=== PATIENT | male | born 1990 | race Caucasian/White ===

== ENCOUNTER 2018-04-06 12:17 | Emergency (ER) | payer SELFPAY ==
[2018-04-06 13:39] LABS: A TYPE INFLUENZA AG NEGATIVE (NEGATIVE); B INFLUENZA AG NEGATIVE (NEGATIVE)
--- NOTE | 2018-04-06 13:57 | ER Document Report ---
HPI - HPI Patient complains to provider of: Patient presents with a sore throat the past week. Denies fever. Time Seen by Provider: 04/06/18 12:56 Onset: Just prior to arrival Onset/Duration: Gradual Quality of pain: No pain Severity: Mild Pain Level: Denies Associated Symptoms: denies: Productive cough, Diarrhea, Drooling, Earache, Hoarseness, Shortness of breath Exacerbated by: Denies Relieved by: Denies Similar symptoms previously: No Recently seen / treated by doctor: No - ROS ROS below otherwise negative: No - CONSTITUTIONAL Constitutional: DENIES: Fever, Chills - EENT EENT: REPORTS: Sore Throat. DENIES: Congestion, Eye problems - NEURO Neurology: DENIES: Headache, Weakness, Vision blurred - CARDIOVASCULAR Cardiovascular: DENIES: Chest pain - RESPIRATORY Respiratory: DENIES: Trouble Breathing - GASTROINTESTINAL Gastrointestinal: DENIES: Abdominal Pain - DERM Skin Color: Normal Skin Problems: None Past Medical History - General Information source: Patient - Social History Smoking Status: Never Smoker Cigarette use (# per day): No Chew tobacco use (# tins/day): No Smoking Education Provided: No Frequency of alcohol use: None Drug Abuse: None Lives with: Family Family History: None Patient has suicidal ideation: No Patient has homicidal ideation: No - Medical History Medical History: Negative Surgical Hx: Negative Vertical Provider Document - CONSTITUTIONAL Agree With Documented VS: Yes Exam Limitations: No Limitations General Appearance: WD/WN - INFECTION CONTROL TRAVEL OUTSIDE OF THE [place] IN LAST 30 DAYS: No - HEENT HEENT: Atraumatic, Pharyngeal Erythema. negative: Dental Injury, Pharyngeal Exudate - NECK Neck: Supple - RESPIRATORY Respiratory: Breath Sounds Normal - CARDIOVASCULAR Cardiovascular: Regular Rate - GI/ABDOMEN Gastrointestinal: Abdomen Soft - NEURO Level of Consciousness: Awake, Alert, Appropriate Course - Vital Signs Vital signs: Temp Pulse Resp BP Pulse Ox 98.1 F 92 16 141/82 H 98 04/06/18 12:21 04/06/18 12:21 04/06/18 12:21 04/06/18 12:21 04/06/18 12:21 Discharge - Discharge Clinical Impression: URI Condition: Stable Disposition: HOME, SELF-CARE Instructions: Upper Respiratory Illness ([facility]) Additional Instructions: Notes: The rapid strep test was negative. The flu study tests were negative as well. I recommend rest, drink plenty of fluids, see the information sheet on upper respiratory illness. Return to the emergency room for worsening sore throat, fever (temperature greater than 100.5), shortness of breath or any concerns or getting worse. Forms: Return to Work
[2018-04-06 13:58] VITALS: BP 136/86
== END 2018-04-06 13:56 | disposition home or self-care (01) ==
LOC: ER 12:17
DX: J06.9 Acute upper respiratory infection, unspecified (principal); J02.9 Acute pharyngitis, unspecified
CPT/HCPCS: 87070; 87804; 87880; 99283

== ENCOUNTER 2018-08-30 08:51 | Emergency (ER) | payer SELFPAY ==
--- NOTE | 2018-08-30 10:04 | ER Document Report ---
ED Medical Screen (RME) - General Chief Complaint: Abdominal Pain Stated Complaint: STOMACH PAIN Time Seen by Provider: 08/30/18 09:09 Mode of Arrival: Ambulatory Information source: Patient Notes: 28-year-old male presents to ED for complaint of lower abdominal pain nausea and diarrhea. He states he has not had any vomiting. He is alert oriented respirations regular and unlabored speaking in full sentences. He states he is a former walker and drinker has not drink since he was 21. He states he does smoke marijuana. He lives with his significant other works at a [employer]. States he has not had any vomiting. He is alert oriented respirations regular and unlabored speaking in full sentences. I have greeted and performed a rapid initial assessment of this patient. A comp rehensive ED assessment and evaluation of the patient, analysis of test results and completion of medical decision making process will be conducted by an additional ED providers. Dictation of this chart was performed using voice recognition software; therefore, there may be some unintended grammatical errors. TRAVEL OUTSIDE OF THE [place] IN LAST 30 DAYS: No - Related Data Allergies/Adverse Reactions: citalopram [From Celexa] Allergy (Verified 08/30/18 08:52) Past Medical History - Social History Frequency of alcohol use: None Renal/ Medical History: Denies: Hx Peritoneal Dialysis Physical Exam - Vital signs Vitals: Temp Pulse Resp BP Pulse Ox 97.8 F 60 20 124/84 97 08/30/18 08:56 08/30/18 08:56 08/30/18 08:56 08/30/18 08:56 08/30/18 08:56 Course - Vital Signs Vital signs: Temp Pulse Resp BP Pulse Ox 97.8 F 60 20 124/84 97 08/30/18 08:56 08/30/18 08:56 08/30/18 08:56 08/30/18 08:56 08/30/18 08:56
[2018-08-30 10:44] LABS: ABSOLUTE EOSINOPHILS # (AUTO) 0.1 10^3/uL (0.0-0.6); ABSOLUTE MONOCYTES (AUTO) 0.6 10^3/uL (0.1-1.4); ABSOLUTE NEUT (AUTO) 3.3 10^3/uL (1.7-8.2); BASOPHILS % (AUTO) 0.7 % (0-2); HEMATOCRIT 43.1 % (37.9-51.0); HEMOGLOBIN 15.4 g/dL (13.5-17.0); LYMPHOCYTES % (AUTO) 32.5 % (13-45); MEAN CORPUSCULAR HEMOGLOBIN 29.7 pg (27.0-33.4); MEAN CORPUSCULAR HGB CONC 35.7 g/dL (32.0-36.0); MEAN CORPUSCULAR VOLUME 83 fl (80-97); MONOCYTES % (AUTO) 9.6 % (3-13); PLATELET COUNT 216 10^3/uL (150-450); RED BLOOD COUNT 5.19 10^6/uL (4.35-5.55); RED CELL DISTRIBUTION WIDTH 13.1 % (11.5-14.0); SEGMENTED NEUTROPHILS % (AUTO) 55.2 % (42-78); TOTAL CELLS COUNTED % (AUTO) 100 %
[2018-08-30 10:59] LABS: APPEARANCE,URINE CLEAR; BILIRUBIN,URINE NEGATIVE (NEGATIVE); COLOR,URINE YELLOW; GLUCOSE, URINE NEGATIVE (NEGATIVE); KETONES,URINE NEGATIVE (NEGATIVE); LEUKOCYTE ESTERASE,URINE NEGATIVE (NEGATIVE); NITRITE,URINE NEGATIVE (NEGATIVE); PROTEIN,URINE NEGATIVE (NEGATIVE); URINE SPECIFIC GRAVITY 1.021; UROBILINOGEN,URINE NEGATIVE mg/dL (<2.0)
[2018-08-30 11:04] LABS: ALANINE AMINOTRANSFERASE 35 U/L (21-72); ALBUMIN 4.5 g/dL (3.5-5.0); ALKALINE PHOSPHATASE 57 U/L (38-126); ANION GAP 8 (5-19); ASPARTATE AMINO TRANSFERASE 34 U/L (17-59); BILIRUBIN,DIRECT 0.2 mg/dL (0.0-0.4); BILIRUBIN,TOTAL 0.6 mg/dL (0.2-1.3); BLOOD UREA NITROGEN 14 mg/dL (7-20); CALCIUM 9.5 mg/dL (8.4-10.2); CARBON DIOXIDE 27 mmol/L (22-30); CHLORIDE 104 mmol/L (98-107); GLUCOSE 99 mg/dL (75-110); POTASSIUM 4.5 mmol/L (3.6-5.0); TOTAL PROTEIN 6.9 g/dL (6.3-8.2)
[2018-08-30 11:19] LABS: URINE AMPHETAMINES SCREEN NEGATIVE; URINE BARBITURATES SCREEN NEGATIVE; URINE BENZODIAZEPINES SCREEN NEGATIVE; URINE COCAINE SCREEN NEGATIVE; URINE MARIJUANA (THC) SCREEN UNCONFIRMED POSITIVE; URINE METHADONE SCREEN NEGATIVE; URINE PHENCYCLIDINE SCREEN NEGATIVE
--- NOTE | 2018-08-30 12:16 | ER Document Report ---
HPI - HPI Patient complains to provider of: abdominal pain, nausea, diarrhea Time Seen by Provider: 08/30/18 09:09 Onset: Yesterday Onset/Duration: Intermittent Quality of pain: Cramping Severity: Mild Pain Level: 2 Context: 28 yr old male pt with the listed pmh, here requesting a work note and also for intermittent crampy lower abdominal pain and a few episodes of loose nonbloody diarrhea x 2 days. thinks he may have eaten some bad chicken. girlfriend sick with same. some nausea. no vomiting. no trauma or injury. no hx of diabetes or asthma. no uti sx. no testicular pain/swelling, penile dc/rash/lesions, or concerns for stds. denies swelling or hx of hernias. no abd surgeries unless otherwise noted. no recent abx or steroids. hasn't taken anything for sx. no hx of gerd, gb dz, panceratitis, gi bleed, ulcers, ibs, or crohns. no hx of this before. no uri sx. no rash. no excessive nsaid use or etoh. no recent illness. pain not worse with eating. denies changes in color of stool. no other associated sx. hasn't sought care until now. no recent abx or travel. no other changes in meds or diet. tolerating po. Associated Symptoms: Diarrhea, Nausea Exacerbated by: Denies Relieved by: Denies Similar symptoms previously: No Recently seen / treated by doctor: No - ROS Systems Reviewed and Negative: Yes All other systems reviewed and negative - to include 10, unless mentioned in the hpi - DERM Skin Color: Normal Past Medical History - General Information source: Patient - Social History Smoking Status: Former Smoker Frequency of alcohol use: None Drug Abuse: Marijuana - denies hx of cannabis hyperemesis Family History: None Patient has suicidal ideation: No Patient has homicidal ideation: No Renal/ Medical History: Denies: Hx Peritoneal Dialysis - Immunizations Immunizations up to date: Yes Vertical Provider Document - CONSTITUTIONAL Notes: >>>> PHYSICAL_EXAM: GENERAL_APPEARANCE: well_nourished, alert, cooperative, no_acute_distress, no obvious_discomfort. Pleasant, young male, smiling, speaking in full sentences, easily sitting up, in no sign of pain or resp distress, nontoxic VITALS: reviewed, see vital signs table. HEAD: normocephalic. atraumatic. no subramanian signs. no raccoon eyes. EYES: PERRL, EOMI, (-)scleral icterus. NOSE: no_nasal_discharge. MOUTH: (-)decreased moisture. THROAT: no_tonsilar_inflammation/hypertrophy/exudate. no lymphadenopathy NECK: supple, no_neck_tenderness, full rom. full strength. no meningeal signs. BACK: no_back_tenderness. CHEST_WALL: no_chest_tenderness. LUNGS: no_wheezing, (-)accessory muscle use, good air exchange bilateral. HEART: normal_rate, normal_rhythm,, ABDOMEN: normal_BS, soft, abdomen-diffuse non-tender, (-)guarding, (-)rebound, no distension or peritoneal signs. neg murphys. neg mcburneys. neg heel strike. neg obturator. neg psoas. neg rovsign. no cva tenderness GENITALS: deferred by pt RECTAL: deferred EXTREMITIES: , strength 5/5 in all_extremities, good pulses in all_extremities, no_edema, no_swelling\tenderness. full rom. normal gait. brisk cap refill. 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 SKIN: warm, dry, good_color, n _rash. no grossly visible overlying skin changes to suggest trauma unless otherwise noted. NEURO: motor_intact, sensory_intact. cranial nerves 2-12 intact, cerebellar fxn intact MENTAL_STATUS: normal_affect, speech_clear, oriented_X_3, responds_a ppropriately to questions. - INFECTION CONTROL TRAVEL OUTSIDE OF THE [place] IN LAST 30 DAYS: No Course - Re-evaluation Re-evalutation: pt here for some intermittent crampy abd pain and a few episodes of diarrhea x 2days. concern for possible ingestion of bad chicken. also requesting a work not e. states some nausea. no vomiting. no fevers. girlfriend sick with similar. labs unremarkable other than marijuana pos on uds. denies hx of cannabis hyperemesis. denies any abd pain currently or nausea. just requests something to help with the intermittent diffuse stomach cramps and a work note. stool studies pending. advised will call with any results that require change in plan of care once they return. advised bland diet. drink plenty of fluids. serial abd exams remain benign. he is tolerating po. appears nontoxic and clinically hydrated. will dc with a few bentyl. abd pain return precautions given. advised to f/u with pcp in 1-2 days. return for any worsening symptoms. vss. well appearing. satting well on ra. neurononfocal. pt understands and agrees to plan. On reexam, pt improved remained stable. nontoxic. well appearing. pain controlled. tolerating po. requesting to go home. serial abd exams remain benign Documentation achieved through voice recording which my lead to some occasional accidental typographical errors. Extensive efforts have been made to proof read documentation to make sure these are the least as possible. Category Date Time Status CBC WITH DIFF [HEME] Stat Lab 08/30/18 10:20 Completed COMPREHENSIVE METABOLIC PANEL [CHEM] Stat Lab 08/30/18 10:20 Completed LIPASE [CHEM] Stat Lab 08/30/18 10:20 Completed OCCULT BLOOD,STOOL [MO] Stat Lab 08/30/18 10:20 Completed STOOL CULTURE+GRAM STAIN(WBC) [MC] Stat Lab 08/30/18 10:20 Completed STOOL FOR WBC [HEME] Stat Lab 08/30/18 10:20 Completed URINALYSIS [URIN] Stat Lab 08/30/18 10:20 Completed URINE CULTURE [MC] Stat Lab 08/30/18 10:20 Completed URINE DRUG SCREEN [CHEM] Stat Lab 08/30/18 10:20 Completed - Vital Signs Vital signs: Temp Pulse Resp BP Pulse Ox 97.8 F 60 20 124/84 97 08/30/18 08:56 08/30/18 08:56 08/30/18 08:56 08/30/18 08:56 08/30/18 08:56 Temp Pulse Pulse Resp BP BP Pulse Ox 08/30/18 13:59 62 16 144/62 H 99 08/30/18 08:56 97.8 F 60 20 124/84 97 - Laboratory Result Diagrams: 08/30/18 10:20 08/30/18 10:20 Laboratory results interpreted by me: Labs- Entire Visit 08/30/18 08/30/18 08/30/18 10:20 10:20 10:20 WBC 6.0 RBC 5.19 Hgb 15.4 Hct 43.1 MCV 83 MCH 29.7 MCHC 35.7 RDW 13.1 Plt Count 216 Seg Neutrophils % 55.2 Lymphocytes % 32.5 Monocytes % 9.6 Eosinophils % 2.0 Basophils % 0.7 Absolute Neutrophils 3.3 Absolute Lymphocytes 2.0 Absolute Monocytes 0.6 Absolute Eosinophils 0.1 Absolute Basophils 0.0 Sodium 139.4 Potassium 4.5 Chloride 104 Carbon Dioxide 27 Anion Gap 8 BUN 14 Creatinine 0.96 Est GFR ( Amer) > 60 Est GFR (Non-Af Amer) > 60 Glucose 99 Calcium 9.5 Total Bilirubin 0.6 Direct Bilirubin 0.2 Neonat Total Bilirubin Not Reportable Neonat Direct Bilirubin Not Reportable Neonat Indirect Bili Not Reportable AST 34 ALT 35 Alkaline Phosphatase 57 Total Protein 6.9 Albumin 4.5 Lipase 111.6 Urine Color Urine Appearance Urine pH Ur Specific Spraggs Urine Protein Urine Glucose (UA) Urine Ketones Urine Blood Urine Nitrite Urine Bilirubin Urine Urobilinogen Ur Leukocyte Esterase Urine WBC (Auto) Urine Mucus (Auto) Urine Ascorbic Acid Stool Occult Blood NEGATIVE Stool for White Cells Urine Opiates Screen Urine Methadone Screen Ur Barbiturates Screen Ur Phencyclidine Scrn Ur Amphetamines Screen U Benzodiazepines Scrn Urine Cocaine Screen U Marijuana (THC) Screen 08/30/18 08/30/18 08/30/18 10:20 10:20 10:20 WBC RBC Hgb Hct MCV MCH MCHC RDW Plt Count Seg Neutrophils % Lymphocytes % Monocytes % Eosinophils % Basophils % Absolute Neutrophils Absolute Lymphocytes Absolute Monocytes Absolute Eosinophils Absolute Basophils Sodium Potassium Chloride Carbon Dioxide Anion Gap BUN Creatinine Est GFR ( Amer) Est GFR (Non-Af Amer) Glucose Calcium Total Bilirubin Direct Bilirubin Neonat Total Bilirubin Neonat Direct Bilirubin Neonat Indirect Bili AST ALT Alkaline Phosphatase Total Protein Albumin Lipase Urine Color YELLOW Urine Appearance CLEAR Urine pH 6.0 Ur Specific Spraggs 1.021 Urine Protein NEGATIVE Urine Glucose (UA) NEGATIVE Urine Ketones NEGATIVE Urine Blood NEGATIVE Urine Nitrite NEGATIVE Urine Bilirubin NEGATIVE Urine Urobilinogen NEGATIVE Ur Leukocyte Esterase NEGATIVE Urine WBC (Auto) 0 Urine Mucus (Auto) RARE Urine Ascorbic Acid NEGATIVE Stool Occult Blood Stool for White Cells NO WBCs SEEN Urine Opiates Screen NEGATIVE Urine Methadone Screen NEGATIVE Ur Barbiturates Screen NEGATIVE Ur Phencyclidine Scrn NEGATIVE Ur Amphetamines Screen NEGATIVE U Benzodiazepines Scrn NEGATIVE Urine Cocaine Screen NEGATIVE U Marijuana (THC) Screen UNCONFIRMED POSITIVE Discharge - Discharge Clinical Impression: Encounter to obtain excuse from work, Marijuana smoker Abdominal pain Qualifiers: Abdominal location: unspecified location Qualified Code(s): R10.9 - Unspecified abdominal pain Diarrhea Qualifiers: Diarrhea type: unspecified type Qualified Code(s): R19.7 - Diarrhea, unspecified Condition: Good Disposition: HOME, SELF-CARE Instructions: Abdominal Pain ([facility]) Additional Instructions: Follow-up with your PCP 1 to 2 days. Return for any worsening symptoms. Allen diet. Drink plenty of fluids. We will call you with any abnormal results once they return. Abdominal pain return precautions as discussed. Take medication as prescribed. Prescriptions: Dicyclomine HCl [Bentyl 20 mg Tablet] 20 mg PO QID PRN #20 tablet PRN Reason: Forms: Return to Work
[2018-08-30 13:59] VITALS: BP 144/62
== END 2018-08-30 13:59 | disposition home or self-care (01) ==
LOC: ER 08:51
DX: R10.30 Lower abdominal pain, unspecified (principal); R19.7 Diarrhea, unspecified; R11.0 Nausea; F12.10 Cannabis abuse, uncomplicated; Z87.891 Personal history of nicotine dependence
CPT/HCPCS: 36415; 80053; 80307; 81001; 82272; 83690; 85025; 87045; 87086; 87205; 89055; 99284

== ENCOUNTER 2019-05-11 19:41 | Emergency (ER) | payer SELFPAY ==
--- NOTE | 2019-05-11 20:05 | ER Document Report ---
ED Medical Screen (RME) - General Chief Complaint: Breast Lump Stated Complaint: LUMP ON RIGHT SIDE OF BREAST Time Seen by Provider: 05/11/19 20:02 Mode of Arrival: Ambulatory Information source: Patient Notes: 29-year-old male presents to ED for a lump to the right chest just below the breast. Patient states it started about a week ago very small and now it is gotten much larger now is painful. There is no redness there is no signs of an abscess there is no fluctuation to the area. Will have a ultrasound done and have evaluated by a provider. Patient denies any past medical history except for broken left leg. He states he does not smoke drink or use any drugs. He does use a vapor cigarette. I have greeted and performed a rapid initial assessment of this patient. A comprehensive ED assessment and evaluation of the patient, analysis of test results and completion of medical decision making process will be conducted by an additional ED providers. TRAVEL OUTSIDE OF THE [place] IN LAST 30 DAYS: No - Related Data Allergies/Adverse Reactions: citalopram [From Celexa] Allergy (Verified 08/30/18 08:52) Past Medical History Renal/ Medical History: Denies: Hx Peritoneal Dialysis - Immunizations Immunizations up to date: Yes Physical Exam - Vital signs Vitals: Temp Pulse Resp BP Pulse Ox 98.2 F 89 16 138/84 H 99 05/11/19 19:52 05/11/19 19:52 05/11/19 19:52 05/11/19 19:52 05/11/19 19:52 Course - Vital Signs Vital signs: Temp Pulse Resp BP Pulse Ox 98.2 F 89 16 138/84 H 99 05/11/19 19:52 05/11/19 19:52 05/11/19 19:52 05/11/19 19:52 05/11/19 19:52
--- NOTE | 2019-05-11 20:27 | ER Document Report ---
ED General - General Chief Complaint: Breast Lump Stated Complaint: LUMP ON RIGHT SIDE OF BREAST Time Seen by Provider: 05/11/19 20:02 Mode of Arrival: Ambulatory Information source: Patient Notes: triage note Pt reports lump to RUQ abdomen since Thursday that's progressively getting bigger and states just started hurting today. Denies injury or trauma to Right side. 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 He denies any trauma denies any fever chills cough cold drug use exposure to coronavirus travel outside the [place] shortness of breath fever chills . TRAVEL OUTSIDE OF THE [place] IN LAST 30 DAYS: No - HPI Onset: Other - x 3 days - Related Data Allergies/Adverse Reactions: citalopram [From Celexa] Allergy (Verified 08/30/18 08:52) Past Medical History - General Information source: Patient - Social History Smoking Status: Current Every Day Smoker Cigarette use (# per day): Yes Chew tobacco use (# tins/day): No Smoking Education Provided: Yes Frequency of alcohol use: None Drug Abuse: None Lives with: Family Family History: None, Reviewed & Not Pertinent Patient has suicidal ideation: No Patient has homicidal ideation: No Renal/ Medical History: Denies: Hx Peritoneal Dialysis - Immunizations Immunizations up to date: Yes Review of Systems - Review of Systems Constitutional: No symptoms reported EENT: No symptoms reported Cardiovascular: No symptoms reported Respiratory: No symptoms reported Gastrointestinal: No symptoms reported Genitourinary: No symptoms reported Male Genitourinary: No symptoms reported Musculoskeletal: No symptoms reported Skin: See HPI, Lumps - RUQ/ant rib pain Hematologic/Lymphatic: No symptoms reported Neurological/Psychological: No symptoms reported Physical Exam - Vital signs Vitals: Temp Pulse Resp BP Pulse Ox 98.2 F 89 16 138/84 H 99 05/11/19 19:52 05/11/19 19:52 05/11/19 19:52 05/11/19 19:52 05/11/19 19:52 Interpretation: Normal - General General appearance: Appears well - HEENT Head: Normocephalic Eyes: Normal Conjunctiva: Normal Cornea: Normal Extraocular movements intact: Yes Eyelashes: Normal Pupils: PERRL Pharynx: Normal Neck: Normal - Respiratory Respiratory status: No respiratory distress Chest status: Nontender Breath sounds: Normal Chest palpation: Normal - Cardiovascular Rhythm: Regular Heart sounds: Normal auscultation Murmur: No Friction rub: No Shania's crunch: No - Abdominal Inspection: Normal Distension: No distension Bowel sounds: Normal Tenderness: Tender - RUQ mass @ 10 cm diameter Organomegaly: No organomegaly - Back Back: Normal - Extremities General upper extremity: Normal inspection General lower extremity: Normal inspection - Neurological Neuro grossly intact: Yes Cognition: Normal Orientation: AAOx4 [place] Coma Scale Eye Opening: Spontaneous [place] Coma Scale Verbal: Oriented [place] Scale Motor: Obeys Commands [place] Coma Scale Total: 15 Speech: Normal Cranial nerves: Normal Cerebellar coordination: Normal Motor strength normal: LUE, RUE, LLE, RLE - Psychological Associated symptoms: Normal affect - Skin Skin Temperature: Warm Skin Moisture: Dry Irregularity with: Swelling, Tenderness - RUQ lipoma !0 cm diameter Course - Vital Signs Vital signs: Temp Pulse Resp BP Pulse Ox 98.2 F 89 16 138/84 H 99 05/11/19 19:52 05/11/19 19:52 05/11/19 19:52 05/11/19 19:52 05/11/19 19:52 - Diagnostic Test Radiology reviewed: Reports reviewed Radiology results interpreted by me: 05/11/19 23:[address] within normal limits per radiologist Critical Care Note - Critical Care Note Total time excluding time spent on procedures (mins): 60 Discharge - Discharge Clinical Impression: Lipoma Qualifiers: Lipoma location: trunk Qualified Code(s): D17.1 - Benign lipomatous neoplasm of skin and subcutaneous tissue of trunk Condition: Good Disposition: HOME, SELF-CARE Additional Instructions: Follow with surgeon for evaluation of right anterior chest lump and return to ER as needed take medicines as directed Prescriptions: Etodolac [Lodine] 400 mg PO BID #14 tablet Forms: Return to Work
--- NOTE | 2019-05-11 20:55 | RADIOLOGY REPORT (SQ) ---
EXAM DESCRIPTION: Limited ultrasound of the right anterior chest wall CLINICAL HISTORY: 29 years Male, Right chest lump x2 weeks. TECHNIQUE: Using a high frequency linear array transducer the area of clinical concern was evaluated. COMPARISON: None. FINDINGS: The subcutaneous tissues and underlying muscles appear normal. No mass. No fluid collections. No abnormal vascularity. IMPRESSION: Unremarkable ultrasound of the area of clinical concern. Further assessment with CT or MRI could be performed if clinically indicated.
--- NOTE | 2019-05-11 22:48 | RADIOLOGY REPORT (SQ) ---
EXAM DESCRIPTION: CT CHEST WITHOUT IV CONTRAST COMPLETED DATE/TME: 05/11/2019 21:02 CLINICAL HISTORY: 29 years, Male, right ant chest lipoma COMPARISON: Ultrasound today's date TECHNIQUE: 281 Images stored on PACS. All CT scanners at this facility use dose modulation, iterative reconstruction, and/or weight based dosing when appropriate to reduce radiation dose to as low as reasonably achievable (ALARA). [facility]: Dose Right [facility]: CareDose [facility]: Dose Right [facility]: Teradose 4D [facility]: [employer] LIMITATIONS: None. FINDINGS: Evaluation of the mediastinum and hilum limited due to lack of IV contrast. However, no evidence for mediastinal or hilar adenopathy. The heart and pericardium are unremarkable. Limited evaluation of the upper abdomen is unremarkable. Osseous structures are grossly intact. Attention given to the soft tissues of the anterior right chest/chest wall. No discrete abnormality on CT. A few nonspecific nonenlarged axillary chain lymph nodes are present bilaterally. The myofascial planes appear preserved. There is no pneumothorax. The airways are patent. The lungs are clear IMPRESSION: No abnormality of the right chest wall. No acute intrathoracic process. TECHNICAL DOCUMENTATION: Quality ID # [id number]: Final reports with documentation of one or more dose reduction techniques (e.g., Automated exposure control, adjustment of the mA and/or kV according to patient size, use of iterative reconstruction technique) copyright 2011 [employer]- All Rights Reserved
[2019-05-12 00:02] VITALS: BP 121/77
== END 2019-05-12 00:35 | disposition home or self-care (01) ==
LOC: ER 19:41
DX: D17.1 Benign lipomatous neoplasm of skin and subcutaneous tissue of trunk (principal); R07.81 Pleurodynia; R10.811 Right upper quadrant abdominal tenderness; F17.210 Nicotine dependence, cigarettes, uncomplicated; Z88.8 Allergy status to other drugs, medicaments and biological substances
CPT/HCPCS: 71250; 76604; 99285